=== PATIENT | female | born 1995 | race African-American/Black ===

== ENCOUNTER 2016-09-14 21:15 | Emergency (ER) | payer OTHER ==
[~2016-09-14 21:15] MED LIST: BACTRIM DS TABL1 TAB PO; FLEXERIL PO; IBUPROFEN PO; MOTRIN400 MG PO; NO MEDICATIONS; ROBITUSSIN A-C-S1 ML PO; ZITHROMAX PO
[2016-09-19 05:13] LABS: CHLAMYDIA TRACH Not Detected (Not Detected); N GONOR Not Detected (Not Detected)
== END 2016-09-14 21:56 | disposition home or self-care (01) ==
LOC: CFTX 21:15
PROVIDERS: Emergency Medicine
DX: O23.591 Infection of other part of genital tract in pregnancy, first trimester (principal); N76.0 Acute vaginitis; F17.200 Nicotine dependence, unspecified, uncomplicated
CPT/HCPCS: 87491; 87591; 87808; 87905; 99284